=== PATIENT | female | born 1990 | race Caucasian/White ===

== ENCOUNTER 2018-07-12 20:12 | Emergency (ER) | payer SELFPAY ==
[~2018-07-12] VITALS: Ht 182.9 cm; Wt 113.4 kg
[2018-07-12 22:36] VITALS: BP 149/99
[2018-07-12] MEDS ORDERED: HYDROcodone-ACET 10/325MG TAB PO ONE (23:00)
== END 2018-07-13 00:50 | disposition home or self-care (01) ==
LOC: ER 20:12
DX: S63.502A Unspecified sprain of left wrist, initial encounter (principal); S96.912A Strain of unspecified muscle and tendon at ankle and foot level, left foot, initial encounter; M25.072 Hemarthrosis, left ankle; W01.0XXA Fall on same level from slipping, tripping and stumbling without subsequent striking against object, initial encounter; Y93.89 Activity, other specified; Y99.8 Other external cause status; Y92.89 Other specified places as the place of occurrence of the external cause
CPT/HCPCS: 29105; 73080; 73090; 73110; 73610; 81025